=== PATIENT | male | born 1955 | race Caucasian/White ===

== ENCOUNTER → 2017-03-04 | Outpatient (CLI) | payer BC ==
--- NOTE | 2017-03-04 16:15 | DIAGNOSTIC IMAGING REPORT ---
L-SPINE MIN 4 VIEWS ROUTINE HISTORY: 62 years-old Male NEUROGENIC LEG PAIN, R/O SPINAL STENOSIS symptoms are acute in nature. Initial exam. COMPARISON: None available TECHNIQUE: 5 views of the lumbar spine FINDINGS: Moderate intervertebral disc space narrowing seen at L4-L5. 4 mm anterolisthesis of L3 on L4 is noted, likely secondary to long-standing facet arthropathy. Multilevel facet arthropathy is noted, most pronounced in the lower lumbar levels where there is at least moderate disease. No compression deformity identified. Most moniliasis. No acute fracture. Moderate osteoarthritis involves the bilateral hips. IMPRESSION: 1. No acute fracture or subluxation identified. 2. Moderate intervertebral disc space narrowing at L4-L5. 3. Multilevel facet arthropathy with 4 mm anterolisthesis L3 on L4, likely secondary to long-standing disease. 4. Moderate osteoarthritis of the bilateral hips. The above report was generated using voice recognition software. It may contain grammatical, syntax or spelling errors. Electronically signed by: Frederic Mays M.D. 03/04/2017 4:14 PM Dictated Date/Time: 03/04/2017 4:11 PM
== END | disposition home or self-care (01) ==
LOC: C.RAD 15:10
PROVIDERS: ATTEND Family Medicine
DX: M51.36 Other intervertebral disc degeneration, lumbar region (principal); M43.16 Spondylolisthesis, lumbar region; M16.0 Bilateral primary osteoarthritis of hip